=== PATIENT | male | born 1980 | race Caucasian/White ===

== ENCOUNTER 2017-07-15 21:54 | Emergency (ER) | payer SELFPAY ==
--- NOTE | 2017-07-15 23:38 | ED ---
Upper Extremity Pain - HPI Summary HPI Summary: 37 male presents to ED with complaints of a puncture wound to right hand after trying to catch a stake accidentally caught the steak knife that occurred just prior to arrival. States now he is having trouble making a fist. Patient is right-handed. Tetanus is up-to-date within last 5 years. No other injuries. Readings well controlled. Steak knife was not stuck into patient's hand. Denies numbness and tingling at this time. No other complaints. No past medical history. No anticoagulants. - History of Current Complaint Chief Complaint: EDExtremityUpper Stated Complaint: RT ARM LAC Time Seen by Provider: 07/15/17 22:19 Hx Obtained From: Patient Mechanism Of Injury: Penetrating Trauma Onset/Duration: Started Hours Ago, Traumatic Timing: Lasting Seconds Severity Initially: Mild Severity Currently: Mild Pain Location: Hand - Right Character: Aching, Stiffness Aggravating Factor(s): Movement Alleviating Factor(s): Nothing Associated Signs & Symptoms: Positive: Negative Related History: Dominant Hand Right - Allergies/Home Medications Allergies/Adverse Reactions: Allergies Allergy/AdvReac Type Severity Reaction Status Date / Time strawberry Allergy Anaphylatic Verified 07/15/17 22:20 Shock Home Medications: Home Medications Fexofenadine/Pseudoephedrine [Tammi-D 24 Hour Tablet] 1 tab PO DAILY 07/15/17 [History Confirmed 07/15/17] PMH/Surg Hx/FS Hx/Imm Hx Endocrine/Hematology History: Denies: Hx Anticoagulant Therapy, Hx Diabetes Cardiovascular History: Denies: Hx Myocardial Infarction Respiratory History: Denies: Hx Asthma - Immunization History Date of Tetanus Vaccine: unk Date of Influenza Vaccine: none Immunizations Up to Date: Yes Infectious Disease History: No Infectious Disease History: Denies: Traveled Outside the [place] in Last 30 Days - Family History Known Family History: Positive: None - Social History Alcohol Use: Occasionally Substance Use Type: Reports: None Smoking Status (MU): Never Smoked Tobacco Review of Systems Constitutional: Negative Cardiovascular: Negative Respiratory: Negative Positive: Myalgia, Decreased ROM Positive: Other - puncture wound All Other Systems Reviewed And Are Negative: Yes Physical Exam Triage Information Reviewed: Yes Vital Signs On Initial Exam: Initial Vitals Temp Pulse Resp BP Pulse Ox 98.2 F 92 16 161/102 99 07/15/17 22:00 07/15/17 22:00 07/15/17 22:00 07/15/17 22:00 07/15/17 22:00 Vital Signs Reviewed: Yes Appearance: Positive: Well-Appearing, No Pain Distress, Well-Nourished Skin: Positive: Warm, Skin Color Reflects Adequate Perfusion, Dry, Other - Small 0.5 cm linear puncture wound to the right palm minimal bleeding some adipose tissue noted superficial subcutaneous layer rest of skin exam normal no foreign body. Negative: Cold, Numb, Cyanosis @, Pale, Erythema @ Head/Face: Positive: Normal Head/Face Inspection Eyes: Positive: NILSA ENT: Positive: Hearing grossly normal Neck: Positive: Supple Respiratory/Lung Sounds: Positive: Clear to Auscultation, Breath Sounds Present. Negative: Rales, Rhonchi, Wheezes Cardiovascular: Positive: Normal, RRR, Pulses are Symmetrical in both Upper and Lower Extremities. Negative: Murmur, Rub Musculoskeletal: Positive: Normal, Limited @ - With flexion of all fingers to make a fist able to flex 75% extension normal wrist and elbow normal, Pain @ - With flexion. Negative: Interruption @, Edema Left, Edema Right Neurological: Positive: Normal, Sensory/Motor Intact, Alert, Oriented to Person Place, Time, CN Intact II-III, NV Bundle Intact Distally Procedures - Laceration/Wound Repair 1 Location: upper extremity - right hand Description: Linear Length, Depth and Shape: 0.5 cm linear superficial subcutaneous layer no tendon or bony involvement no foreign body well approximated and without bleeding Irrigated w/ Saline (ccs): 200 Laceration/Wound Explored: clean Closure: Skin Adhesive, SteriStrips - warm Debridement: minimal - adipose tissue Sterile Dressing Applied?: Yes - telfa, Curlex [facility] Diagn[facility] - Vital Signs Vital Signs Temp Pulse Resp BP Pulse Ox 07/15/17 22:00 98.2 F 92 16 161/102 99 - Laboratory Lab Statement: Any lab studies that have been ordered have been reviewed, and results considered in the medical decision making process. Course/Dx - Course Course Of Treatment: Due to patient's wound being superficial skin adhesive used and one Steri-Strip was applied. Patient tolerated procedure well. No complications. Well approximated and closed nicely. Sterile dressing was applied. Possibility of partial tear of some tendons causing decreased flexion versus pain and inflammation due to injury. Will start on Augmentin to prevent any infection. Tetanus is up-to-date. Follow-up with orthopedic. Aware worsening signs and symptoms watch out for. No other concerns at this time. Follow-up with PCP ibuprofen for pain and inflammation. Ice rest and elevate. Due to mechanism of injury and physical exam findings x-ray did not appear necessary at this time. Spoke with Dr. Márquez about case who agrees with plan - Diagnoses Differential Diagnosis/HQI/PQRI: Positive: Strain, Sprain, Other - Puncture wound Provider Diagnoses: Puncture wound, Sprain of hand, right Discharge - Sign-Out/Discharge Documenting (check all that apply): Discharge/Admit/Transfer - Discharge Plan Condition: Good Disposition: HOME Prescriptions: Amoxicillin/Clavulanate TAB* [Augmentin TAB 875*] 875 mg PO BID #20 tab Patient Education Materials: Puncture Wound (ED), Hand Sprain (ED) Referrals: No Primary Care Phys,NOPCP [Primary Care Provider] - Janeth Parsons MD [Medical Doctor] - Additional Instructions: make an appointment to follow up with ortho for further evaluation. take prescribed medication as directed. refrain from use, keep dressed. let glue and steri strip fall off on own, do not pick at. do ont get wet for 24-48 hours. apply triple antibiotic ointment after 48 hours. rest, ice and elevate. ibuprofen/tylenol for pain and inflammation, as needed, with food. any new or worsening symptoms please seek medical attention promptly. - Billing Disposition and Condition Condition: GOOD Disposition: HOME
[2017-07-16] MEDS ORDERED: Amoxicillin/Clavulanate TAB* 875 MG PO ONE (00:25)
[2017-07-16 00:40] VITALS: BP 0/0
== END 2017-07-16 00:38 | disposition home or self-care (01) ==
LOC: ED 21:54
DX: S61.431A Puncture wound without foreign body of right hand, initial encounter (principal); S63.91XA Sprain of unspecified part of right wrist and hand, initial encounter; M79.641 Pain in right hand; W26.0XXA Contact with knife, initial encounter; Y92.9 Unspecified place or not applicable
CPT/HCPCS: 99282; A9270-GY

== ENCOUNTER 2021-07-08 05:33 | Observation (INO) ==
[~2021-07-08 05:33] MED LIST: Naloxone 0.4 mg VIAL 0.4 mg/ml 1 ml VIAL IV PRN; fentaNYL 100 mcg/2 ml 50 MCG/ML VIAL IV PRN
[2021-07-08] MEDS ORDERED: Buffered Lidocaine 1% SYRIN 1 ml INTRADERM ONE (06:00)
[2021-07-08] MEDS ORDERED: Lactated Ringers 1000 ml BAG 1,000 ML IV SCH (06:00)
[2021-07-08] MEDS ORDERED: Lidocaine 1% w EPI 1:200,000 SDV 30 ML VIAL ONE (06:51)
[2021-07-08] MEDS ORDERED: ceFAZolin VIAL VIAL ONE (06:51)
[2021-07-08] MEDS ORDERED: Midazolam 2 mg/2 ml VIAL 1 mg/ml 2 ml VIAL (2 mg) ONE (07:12)
[2021-07-08] MEDS ORDERED: Rocuronium 50 mg VIAL 10 mg/ml 5 ml VIAL (50 mg) ONE (07:13)
[2021-07-08] MEDS ORDERED: fentaNYL 100 mcg/2 ml 50 MCG/ML VIAL ONE (07:13)
[2021-07-08] MEDS ORDERED: Propofol 10 MG/ML 20 ML BTL ONE ×2 (07:13→09:31)
[2021-07-08] MEDS ORDERED: Succinylcholine 200 mg VIAL 20 mg/ml 10 ml VIAL (200 mg) ONE (07:13)
[2021-07-08] MEDS ORDERED: Remifentanil 2 MG VIAL ONE ×2 (07:17→09:31)
[2021-07-08] MEDS ORDERED: Phenylephrine IV 10 MG/ML 1 ml VIAL ONE (07:18)
[2021-07-08] MEDS ORDERED: ceFAZolin 2 GM in NS PREMIX 2 GM/100 ML BAG IVPB ONE (07:30)
[2021-07-08] MEDS ORDERED: Dexamethasone IV 4 MG/ML VIAL 1 ml VIAL ONE (08:37)
[2021-07-08] MEDS ORDERED: Acetaminophen IV 1 GM/100ML 100 ML IV ONE (10:31)
[2021-07-08] MEDS ORDERED: Ondansetron 4 mg VIAL 2 MG/ML 2 ml VIAL ONE (11:03)
[2021-07-08] MEDS ORDERED: HYDROcodone/ACETAMIN 5/325 mg TAB PO PRN (11:11)
[2021-07-08] MEDS ORDERED: Ondansetron 4 mg VIAL 2 MG/ML 2 ml VIAL IV PRN (11:11)
[2021-07-08] MEDS: HYDROcodone/ACETAMIN 5/325 mg TAB PO PRN ×3 (14:15→23:59)
[2021-07-09] MEDS: HYDROcodone/ACETAMIN 5/325 mg TAB PO PRN ×3 (06:19→17:26)
[2021-07-09 16:08] VITALS: BP 121/79
== END 2021-07-09 19:15 | disposition home or self-care (01) ==
LOC: OR 05:33 → SSU 05:33
PROVIDERS: ADMIT Neurological Surgery; ATTEND Neurological Surgery